=== PATIENT | female | born 1980 ===

== ENCOUNTER 2021-07-11 14:37 | Emergency (ER) | payer OTHER ==
[2021-07-11 15:58] LABS: BASOPHIL 0.7 % (0-2); EOSINOPHIL 1.9 % (0-5); HGB 14.3 g/dl (12.5-16.0); LYMPHOCYTE 31.6 % (15-48); MCH 33.1 pg (25.0-31.0); MCHC 33.3 g/dL (32.0-36.0); MCV 99.5 fL (78.0-100.0); MONOCYTE 5.8 % (0-12); MPV 9.7 fL (6.0-9.5); NEUTROPHIL 59.6 % (41-80); NRBC 0; PLT 290 K/uL (150-400); RBC 4.32 M/uL (4.20-5.40); RDW 12.6 % (11.5-14.0); WBC 6.8 K/uL (4.0-10.5)
[2021-07-11 16:24] LABS: ALBUMIN 3.7 g/dL (3.4-5.0); BILIRUBIN - TOTAL 0.2 mg/dL (0.2-1.0); BUN/CREAT RATIO (CALC) 7.5 RATIO; CREATININE 0.67 mg/dL (0.51-0.95); GLOBULIN (CALCULATION) 3.6 g/dL; POTASSIUM 4.9 mmol/L (3.5-5.1); TOTAL PROTEIN 7.3 g/dL (6.4-8.2)
== END 2021-07-11 17:48 | disposition left against medical advice (07) ==
LOC: FER 14:37
PROVIDERS: Emergency Medicine
DX: R20.0 Anesthesia of skin (principal); R19.7 Diarrhea, unspecified; Z53.8 Procedure and treatment not carried out for other reasons
CPT/HCPCS: 36415; 80053; 85025